=== PATIENT | female | born 1970 | race Caucasian/White ===

== ENCOUNTER 2019-09-08 13:09 | Emergency (ER) | payer OTHER, SELFPAY ==
--- NOTE | ~2019-09-08 | XR_ITS ---
XR heel LT min 2V 09/08/2019 13:40 INDICATION: Knot on left plantar aspect of the heel. Fracture 2 years ago. PROCEDURE: 2 views left heel/os calcis COMPARISON: No prior studies for comparison. FINDINGS: Fracture, dislocation or subluxation is not identified. The soft tissues appear within norm al limits. No foreign bodies are identified. IMPRESSION: 1: NO ACUTE BONE OR JOINT ABNORMALITY IDENTIFIED. Reviewed, dictated and finalized at location A.
[2019-09-08 13:21] VITALS: BP 130/74; PULSE 81; RESP 16; TEMP 36.6; O2SAT 99
--- NOTE | 2019-09-08 13:23 | ED.GENADULT ---
HPI - General Adult General Chief complaint: Extremity Injury, Lower Stated complaint: left heel pain Time Seen by Provider: 09/08/19 13:24 Source: patient and RN notes reviewed Limitations: no limitations History of Present Illness HPI narrative: 48-year-old female presents today with complaints of left foot mid-heel pain with a knot for the past 14 days. No treatment. No new injuries. Old heel injury approximately 2 years ago. Hurts to bear weight. No radiation of pain. No numbness, tingling, or loss of mobility. Exacerbating factor applying weight. Denies inability to bear weight. Denies discoloration. Denies suspect foreign body. Denies fever, chills, headaches, weakness, fatigue, or myalgia. Denies chest pain or dyspnea. Denies cough, rhinorrhea, congestion, sore throat, nausea, vomiting, abdominal pain, and diarrhea. Tolerating po intake well. Denies recent traveling. Denies concerns for COVID-19 or exposures been home since [id number]-[id number] order except for essential household needs, working, and return home. Some parts of this dictation were generated by voice recognition software and may contain typographical and/or grammatical inaccuracies. Related Data Home Medications Medication Instructions Recorded Confirmed citalopram mg 09/08/19 Allergies Allergy/AdvReac Type Severity Reaction Status Date / Time codeine Allergy Unknown Unknown Verified 09/24/17 11:08 Review of Systems Review of Systems: Narrative: CONSTITUTIONAL: Denies fever, chills, sweats. EYES: Denies visual changes, redness, discharge. ENT: Denies rhinorrhea, congestion, sore throat, otalgia. CARDIOVASCULAR: Denies chest pain, palpitations, edema. RESPIRATORY: Denies dyspnea, wheezing, cough. GASTROINTESTINAL: Denies abdominal pain, nausea, vomiting, diarrhea. GENITOURINARY: Denies dysuria, hematuria, abnormal discharge. SKIN: Denies rash or itching. MUSCULOSKELETAL: Denies acute back pain or myalgia. Complains of pain and a knot to left foot mid-heel. NEUROLOGIC: Denies numbness or focal weakness. PSYCHIATRIC: Denies anxiety or depression. All other systems reviewed & are unremarkable except as noted in HPI and below. [facility] Past Medical History Medical History (Updated 09/09/19 @ 00:01 by Background Daemon) Heel bone fracture History of pilonidal cyst Surgical History Surgical History (Updated 09/08/19 @ 13:38 by LIZA Torrez) History of cone biopsy of cervix History of incision and drainage of pilonidal cyst Family History Family History (Updated 09/08/19 @ 13:38 by LIZA Torrez) Father Hypertension Family history of congestive heart failure Mother Alive and well Social History Social History (Updated 09/08/19 @ 13:40 by LIZA Torrez) Smoking packs per day: 1 Smoking cigarettes per day: 20.0 Years smoked: 20 Smoking pack-years: 20.00 Smoking status: Current every day smoker Tobacco type: cigarettes Second hand tobacco smoke exposure: No Alcohol intake: current Substance use: never Living arrangements: with family Occupation/Education: occupation Gender identity (if verbalized by the patient): Female Comments At time of signature, agree with nurse past medical, surgical, social, and family history. There is no relevant family history pertinent to the presenting complaint. Exam Narrative: Exam Narrative: GENERAL: This is a well-nourished, well-developed patient, in no apparent distress. Ambulates with a limp favoring left lower extremity or walking on ball of foot to prevent putting pressure on heel. HEAD: normocephalic, atraumatic. EYES: PERRL. Sclera clear/white. Vision is grossly intact. CARDIOVASCULAR: Regular rate and rhythm without murmurs, gallops, or rubs. RESPIRATORY: Clear to auscultation. Breath sounds equal bilaterally. No wheezes, rales, or rhonchi. GASTROINTESTINAL: Abdomen soft, non-tender, nondistended. Bowel sounds are act
== END 2019-09-08 14:09 | disposition home or self-care (01) ==
PROVIDERS: Emergency Provider Nurse Practitioner Family; PCP Family Medicine
DX: L84 Corns and callosities (principal); F17.210 Nicotine dependence, cigarettes, uncomplicated
CPT/HCPCS: 73650; 99213; G0463

== ENCOUNTER 2020-07-27 13:43 | Outpatient (CLI) | payer BC, SELFPAY ==
--- NOTE | ~2020-07-27 | MM_ITS ---
EXAMINATION: MM screening [facility] BI w echo HISTORY: Screening mammogram TECHNIQUE: Craniocaudal and mediolateral oblique 3-D tomosynthesis images were obtained and synthetic 2-D images were generated. CAD analysis was submitted and interpreted. COMPARISON: 12/03/2017 BREAST PARENCHYMAL COMPOSITION: There are scattered areas of fibroglandular density. FINDINGS: RIGHT BREAST: There is a 3.5 cm mass in the anterior third of the lower breast which is decreased in size since the prior examination. LEFT BREAST: There is a 1.1 cm mass in the middle third of the central breast 4 cm from the nipple. IMPRESSION: 1. Bilateral breast masses. 2. Additional mammographic views and possible breast ultrasound are recommended. BI-RADS Category 0: Incomplete: Needs additional imaging evaluation. Reviewed, dictated and finalized at location A. IMPRESSION: 1. Bilateral breast masses. 2. Additional mammographic views and possible breast ultrasound are recommended . BI-RADS Category 0: Incomplete: Needs additional imaging evaluation.
[2020-07-27 15:59] LABS: Vitamin D 25 Hydroxy 57.6 ng/mL
== END 2020-07-27 13:44 | disposition home or self-care (01) ==
PROVIDERS: PCP Family Medicine; Visit Provider Nurse Practitioner
DX: Z12.31 Encounter for screening mammogram for malignant neoplasm of breast (principal); E55.9 Vitamin D deficiency, unspecified; R92.8 Other abnormal and inconclusive findings on diagnostic imaging of breast
CPT/HCPCS: 36415; 77063; 77067; 82306

== ENCOUNTER 2020-08-25 12:21 | Outpatient (CLI) | payer BC, SELFPAY ==
--- NOTE | ~2020-08-25 | MMUS_ITS ---
EXAMINATION: MM diagnostic mammo BI, US breast BI limited HISTORY: Bilateral breast masses on screening mammogram TECHNIQUE: Additional 3-D tomosynthesis images of the breasts were performed and synthetic 2-D images were generated. CAD analysis was submitted and interpreted. High resolution limited bilateral breast ultrasound was performed. COMPARISON: 07/27/2020, 12/03/2017 FINDINGS: MAMMOGRAPHIC FINDINGS: Right breast: There is a 3.3 x 2.9 cm oval, circumscribed, equal density mass in the anterior third o f the lower-outer breast at the 8:00 location near the nipple. Left breast: There is a 9 mm oval, obscured, equal density mass in the middle third of the outer [address] at the 3:00 location 4 cm from the nipple. ULTRASOUND: Right breast: There is a 3.1 x 1.3 cm oval, circumscribed, parallel, anechoic mass with posterior aco ustic enhancement and no internal vascularity at the 7:00 location 2 cm from the nipple. There are se veral small, fixed nodules at the periphery of the mass without associated internal vascularity. Left breast: There is an 8 mm x 4 mm oval, circumscribed, parallel, hypoechoic mass with no posterior features or internal vascularity at the 12:00 location 1 cm from the nipple. A 5 mm x 2 mm mass with similar sonographic features is present at the 1:00 location 1 cm from the nipple. IMPRESSION: 1. Cystic right breast mass with peripheral nodules. Ultrasound-guided biopsy of one or more of the p eripheral nodules is recommended. 2. Probably benign left breast masses. Six month follow-up left diagnostic mammogram and ultrasound i s recommended. BI-RADS category 4, suspicious findings. Reviewed, dictated and finalized at location A. IMPRESSION: 1. Cystic right breast mass with peripheral nodules. Ultrasound-guided biopsy o f one or more of the peripheral nodules is recommended. 2. Probably benign left breast masses. Six month follow-up left diagnostic mamm ogram and ultrasound is recommended. BI-RADS category 4, suspicious findings.
== END 2020-08-25 12:22 | disposition home or self-care (01) ==
PROVIDERS: PCP Family Medicine; Visit Provider Obstetrics & Gynecology Gynecology
DX: R92.8 Other abnormal and inconclusive findings on diagnostic imaging of breast (principal)
CPT/HCPCS: 76642; 77066

== ENCOUNTER → 2021-05-12 08:39 | Outpatient (CLI) | payer BC, SELFPAY ==
--- NOTE | ~2021-05-12 | MR_ITS ---
EXAMINATION: MR lumbar spine wo con DATE: 05/12/2021 10:04 INDICATION: Low back pain. TECHNIQUE: Magnetic resonance imaging (MRI) of the lumbar spine was performed without intravenous con trast. Sequences included sagittal T2-weighted FSE, sagittal T2-weighted FS FSE, sagittal T1-weighted FSE, and axial T2-weighted FSE. COMPARISON: None FINDINGS: 7 degrees lumbar levocurvature. Sagittal alignment is normal. Minimal likely physiologic anterior wed ging at T11 and T12. Lumbar vertebral body heights are normal. Moderate to severe disc height loss wi th degenerative fibrofatty endplate changes at L5-S1. Marrow signal is otherwise normal throughout. M ild disc height loss at T10-T11, T11-T12, L3-L4 and L4-L5. Annular fissure at L4-L5. 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 The conus medullaris terminates at L1. There is normal signal in the caudal spinal cord. Paravertebral soft tissues are unremarkable. The following disc levels are s pecifically discussed: T12-L1: Disc is mildly bulging. There is mild bilateral facet joint osteoarthritis. There is no neura l foraminal stenosis. There is negligible central canal stenosis. L1-L2: The disc does not extend beyond the endplate margin. There is mild to moderate bilateral facet joint osteoarthritis. There is no neural foraminal stenosis. There is no central canal stenosis. L2-L3: Disc is minimally bulging. There is mild left and mild to moderate right facet joint osteoarth ritis. There is mild left and minimal right neural foraminal stenosis. There is no central canal sten osis. L3-L4: Disc is mildly bulging. There is mild bilateral facet joint osteoarthritis. There is minimal b ilateral neural foraminal stenosis. There is no central canal stenosis. L4-L5: Disc is bulging with superimposed annular fissure and central disc protrusion. There is mild t o moderate bilateral facet joint osteoarthritis. There is mild right and mild to moderate left neural foraminal stenosis. There is mild central canal stenosis. L5-S1: Disc is mildly bulging. There is mild bilateral facet joint osteoarthritis. There is mild left and mild to moderate right neural foraminal stenosis. There is no central canal stenosis. IMPRESSION: 1. Moderate lower lumbar spondylosis with mild spondylosis in the lower thoracic and upper lumbar spi ne. Reviewed, dictated and finalized at location B. GRAPH OPERATOR IMPRESSION: 1. Moderate lower lumbar spondylosis with mild spondylosis in the lower thoraci c and upper lumbar spine.
--- NOTE | ~2021-05-12 | MR_ITS ---
EXAMINATION: MR cervical spine wo con DATE: 05/12/2021 10:03 INDICATION: Cervicalgia TECHNIQUE: Magnetic resonance imaging (MRI) of the cervical spine was performed without intravenous c ontrast. Sequences included sagittal T2-weighted FSE, sagittal T2-weighted FS FSE, sagittal T1-weight ed FSE, axial MERGE and axial T2-weighted FSE. COMPARISON: Cervical spine radiographs dated 01/06/2019 FINDINGS: Straightening of the normal cervical lordosis. 2 mm retrolisthesis C5 on C6. Vertebral body heights a re normal. Moderate disc height loss with fibrofatty degenerative endplate changes at C5-C6. Marrow s ignal is otherwise normal. Additional moderate disc height loss at T3-T4 and mild disc height loss at C4-C5, T2-T3 and T4-T5. Cord signal intensity is normal. Cervical soft tissues are unremarkable. The following disc levels are specifically discussed: C2-C3: Disc is mildly bulging. There is no uncovertebral joint osteoarthritis. There is mild bilatera l facet joint osteoarthritis. There is no neural foraminal stenosis. There is no central canal stenos is. C3-C4: Disc is mildly bulging. There is mild bilateral uncovertebral joint osteoarthritis. There is m ild bilateral facet joint osteoarthritis. There is no neural foraminal stenosis. There is no central canal stenosis. C4-C5: Disc is bulging. There is moderate bilateral uncovertebral joint osteoarthritis. There is mild bilateral facet joint osteoarthritis. There is mild bilateral neural foraminal stenosis. There is mi ld central canal stenosis with flattening of the ventral surface of the cord. C5-C6: Disc is mildly bulging. There is severe bilateral uncovertebral joint osteoarthritis. There is no facet joint osteoarthritis. There is mild right and mild to moderate left neural foraminal stenos is. There is mild central canal stenosis. C6-C7: The disc does not extend beyond the endplate margin. There is mild left uncovertebral joint os teoarthritis. There is mild bilateral facet joint osteoarthritis. There is mild left neural foraminal stenosis. There is no central canal stenosis. C7-T1: The disc does not extend beyond the endplate margin. There is no uncovertebral joint osteoarth ritis. There is mild left and minimal right facet joint osteoarthritis. There is no neural foraminal stenosis. There is no central canal stenosis. IMPRESSION: 1. Moderate cervical spondylosis. Reviewed, dictated and finalized at location B. OTYPER
== END ==
PROVIDERS: PCP Family Medicine; Visit Provider Nurse Practitioner Family
DX: M47.813 Spondylosis without myelopathy or radiculopathy, cervicothoracic region (principal); M48.03 Spinal stenosis, cervicothoracic region; M47.815 Spondylosis without myelopathy or radiculopathy, thoracolumbar region; M48.05 Spinal stenosis, thoracolumbar region; M47.817 Spondylosis without myelopathy or radiculopathy, lumbosacral region; M48.07 Spinal stenosis, lumbosacral region
CPT/HCPCS: 72141; 72148

== ENCOUNTER 2021-11-03 11:46 | Outpatient (CLI) | payer BC, SELFPAY ==
--- NOTE | ~2021-11-03 | XR_ITS ---
XR cervical spine 4-5V DATE: 11/03/2021 12:17 INDICATION: Neck pain TECHNIQUE: AP, lateral and flexion and extension lateral views COMPARISON: 01/06/2019 cervical spine FINDINGS: There is reversal of cervical curvature. C1 and C2 are normally aligned and the odontoid process is intact. No fracture or dislocation or lock ed facet or prevertebral soft tissue swelling. No cervical instability is evident on flexion or exten vickey. There is moderately severe degenerative disc disease at C4-5 and C5-6. IMPRESSION: Reversal of cervical curvature Moderately severe degenerative disease at C4-5 and C5-6 Reviewed, dictated and finalized at location A.
== END 2021-11-03 11:47 | disposition home or self-care (01) ==
PROVIDERS: PCP Family Medicine; Visit Provider Neurological Surgery
DX: M47.812 Spondylosis without myelopathy or radiculopathy, cervical region (principal)
CPT/HCPCS: 72050

== ENCOUNTER 2022-07-05 10:44 | Outpatient (CLI) | payer BC, SELFPAY ==
[2022-07-05 11:08] LABS: Hematocrit 29.4 % (37.0-47.0); Hemoglobin 8.3 g/dL (12.0-15.0); Mean Corpuscular HGB Conc 28.2 g/dl (32-36); Mean Corpuscular Hemoglobin 20.8 pg (26-34); Mean Corpuscular Volume 73.7 fl (80-100); Mean Platelet Volume 9.1 fl (7.4-10.4); Platelet Count Result 310 k/mm3 (150-375); Red Blood Count 3.99 M/mm3 (4.2-5.4); Red Cell Distribution Width 17.2 % (11.5-14.5); White Blood Count 3.7 K/mm3 (4.5-10.0)
[2022-07-05 11:19] LABS: Alanine Aminotransferase 19 U/L (6-35); Albumin Level 4.5 g/dL (3.5-5.1); Alkaline Phosphatase 51 U/L (38-126); Anion Gap 5 mmol/L (8-16); Aspartate Amino Transferase 24 U/L (14-36); Bilirubin,Total 0.4 mg/dL (0.2-1.3); Blood Urea Nitrogen 20 mg/dL (7-17); Calcium 8.6 mg/dL (8.4-10.2); Carbon Dioxide 29 mmol/L (22-30); Chloride 104 mmol/L (98-107); Cholesterol 175 mg/dL (0-200); Estimated Glomerular Filt Rate > 60; Glucose 91 mg/dL (65-110); HDL Direct 67 mg/dL; Potassium 4.2 mmol/L (3.4-5.0); Sodium 138 mmol/L (137-145); Triglycerides 45 mg/dL (<150)
[2022-07-05 11:30] LABS: LDL Cholesterol Direct 86 mg/dL
== END 2022-07-05 10:45 | disposition home or self-care (01) ==
LOC: ANHLAB 10:47
PROVIDERS: PCP Family Medicine; Visit Provider Physician Assistant Medical
DX: E78.2 Mixed hyperlipidemia (principal); R53.83 Other fatigue
CPT/HCPCS: 36415; 80053; 80061; 85027

== ENCOUNTER 2022-07-11 10:12 | Outpatient (CLI) | payer BC, SELFPAY ==
[2022-07-11 12:02] LABS: Iron 21 ug/dL (37-170)
[2022-07-11 12:12] LABS: Percent Iron Saturation 4 % (20-50)
[2022-07-11 12:36] LABS: Ferritin 4.33 ng/mL (6.24-137)
== END 2022-07-11 10:13 | disposition home or self-care (01) ==
LOC: ANHLAB 10:13
PROVIDERS: PCP Family Medicine; Visit Provider Physician Assistant Medical
DX: R53.83 Other fatigue (principal)
CPT/HCPCS: 36415; 82728; 83540; 83550

== ENCOUNTER 2022-09-05 09:50 | Outpatient (CLI) | payer BC, SELFPAY ==
--- NOTE | ~2022-09-05 | MM_ITS ---
EXAMINATION: MM screening [facility] BI w echo HISTORY: Screening mammogram TECHNIQUE: Craniocaudal and mediolateral oblique 3-D tomosynthesis images were obtained and synthetic 2-D images were generated. CAD analysis was submitted and interpreted. COMPARISON: 08/25/2020, 07/27/2020, 12/03/2017 BREAST PARENCHYMAL COMPOSITION: There are scattered areas of fibroglandular density. FINDINGS: There has been interval biopsy and drainage of previously described right breast mass. A ma ss in the central left breast is unchanged in the two year interval since the prior examination, cons istent with a benign finding. No suspicious mass, calcification, or architectural distortion are iden tified in either breast to suggest malignancy. There has been no suspicious interval change. IMPRESSION: 1. No mammographic evidence of malignancy. 2. Recommend routine screening mammography in one year. BI-RADS Category 2: Benign finding(s). Reviewed, dictated and finalized at location A.
== END 2022-09-05 09:51 | disposition home or self-care (01) ==
LOC: ANHIMG 09:53
PROVIDERS: PCP Family Medicine; Visit Provider Physician Assistant Medical
DX: Z12.31 Encounter for screening mammogram for malignant neoplasm of breast (principal)
CPT/HCPCS: 77063; 77067

== ENCOUNTER → 2022-11-02 08:30 | Outpatient (CLI) | payer BC, SELFPAY ==
--- NOTE | ~2022-11-02 | US_ITS ---
EXAMINATION: US transvaginal DATE: 11/02/2022 08:57 INDICATION: Excessive and frequent menstruation TECHNIQUE: Multiple endovaginal sonographic images of the pelvis were obtained. COMPARISON: None. FINDINGS: The uterus measures 9 x 7.7 x 7.5 cm. There are multiple small masses of the uterus which h ave the appearance of intramural fibroids. The largest measures 4 cm in the posterior uterine body. T he endometrial complex measures 11 mm. The right ovary measures 4.5 x 2.7 x 2.4 cm. The left ovary me asures 2.9 x 2.1 x 1.8 cm. There is normal vascular flow in the ovaries. There is no free fluid in th e pelvis. IMPRESSION: 1. Small uterine fibroids. Reviewed, dictated and finalized at location B. IMPRESSION: 1. Small uterine fibroids.
== END ==
PROVIDERS: PCP Family Medicine; Visit Provider Obstetrics & Gynecology Gynecology
DX: N92.0 Excessive and frequent menstruation with regular cycle (principal); D25.9 Leiomyoma of uterus, unspecified
CPT/HCPCS: 76830

== ENCOUNTER 2023-01-28 11:52 | Outpatient (CLI) | payer BC, SELFPAY ==
[2023-01-28 12:11] LABS: Hematocrit 33.4 % (37.0-47.0); Hemoglobin 10.2 g/dL (12.0-15.0); Mean Corpuscular HGB Conc 30.5 g/dl (32-36); Mean Corpuscular Hemoglobin 25.4 pg (26-34); Mean Corpuscular Volume 83.1 fl (80-100); Mean Platelet Volume 10.1 fl (7.4-10.4); Platelet Count Result 286 k/mm3 (150-375); Red Blood Count 4.02 M/mm3 (4.2-5.4); Red Cell Distribution Width 15.1 % (11.5-14.5); White Blood Count 5.7 K/mm3 (4.5-10.0)
== END 2023-01-28 11:53 | disposition home or self-care (01) ==
LOC: ANHLAB 11:54
PROVIDERS: PCP Family Medicine; Visit Provider Obstetrics & Gynecology Gynecology
DX: N92.0 Excessive and frequent menstruation with regular cycle (principal)
CPT/HCPCS: 36415; 85027

== ENCOUNTER 2023-03-25 14:38 | Outpatient (CLI) | payer BC, SELFPAY ==
[2023-03-25 15:27] LABS: Hemoglobin 11.2 g/dL (12.0-15.0); Mean Corpuscular HGB Conc 31.1 g/dl (32-36); Mean Corpuscular Hemoglobin 27.8 pg (26-34); Mean Corpuscular Volume 89.3 fl (80-100); Mean Platelet Volume 10.7 fl (7.4-10.4); Platelet Count Result 239 k/mm3 (150-375); Red Blood Count 4.03 M/mm3 (4.2-5.4); Red Cell Distribution Width 18.6 % (11.5-14.5); White Blood Count 5.5 K/mm3 (4.5-10.0)
== END 2023-03-25 14:39 | disposition home or self-care (01) ==
LOC: ANHLAB 14:40
PROVIDERS: PCP Family Medicine; Visit Provider Obstetrics & Gynecology Gynecology
DX: D64.9 Anemia, unspecified (principal)
CPT/HCPCS: 36415; 85027

== ENCOUNTER 2023-04-25 00:09 | Day surgery (SDC) | payer BC, SELFPAY ==
[2023-04-09 09:40] VITALS: BMI 30.9
--- NOTE | 2023-04-23 08:57 | SUR.PREOP ---
Patient called regarding upcoming procedure. Message left on patient's voicemail regarding appointment times.
[2023-04-25 07:37] VITALS: BP 129/83; PULSE 83; RESP 16; TEMP 35.9; O2SAT 100; BMI 30.7
[2023-04-25] MEDS: LACTATED RINGERS 1,000 ML 150 ML IV CONT (07:46)
--- NOTE | 2023-04-25 08:16 | WPDANESEPPF ---
Anes - Initial Pre Proc Eval Procedure: Operation Date: 04/25/23 09:00 Proposed Procedures p Screening Colonoscopy - Mika Luu MD Date/Time: 04/25/23 08:16 Surgeon: Mika Luu MD Pre Op Diagnosis: neoplasm screening Patient Data Age: 52 Gender: F Height: 1.75 m Weight: 94.3 kg Last Vital Signs Temp 35.9 C L 04/25/23 07:37 Pulse 83 04/25/23 07:37 Resp 16 04/25/23 07:37 BP 129/83 04/25/23 07:37 Pulse Ox 100 04/25/23 07:37 O2 Del Method Room Air 04/25/23 07:37 Allergies Allergy/AdvReac Type Severity Reaction Status Date / Time codeine Allergy Unknown Unknown Verified 04/25/23 07:36 Home Medications Medication Instructions Recorded Confirmed Type omeprazole magnesium 20 mg 20 mg PO DAILY 01/29/20 04/25/23 History tablet,delayed release (Prilosec OTC) iprzyid-hpvcqwwmyupxd-kkzdrcsy 250 1 tablet PO Q4-6H PRN Migraine 03/09/22 04/25/23 History mg-250 mg-65 mg tablet (Excedrin Headache Migraine) tramadol 50 mg tablet 50 mg PO Q6H PRN pain #40 tabs 04/01/23 04/25/23 Rx Blisovi 24 Fe 1 tab-cap PO DAILY 04/09/23 04/25/23 History escitalopram oxalate 10 mg tablet 20 mg PO DAILY 04/09/23 04/25/23 History ferric maltol 30 mg capsule 30 mg PO DAILY 04/09/23 04/25/23 History (Accrufer) cyclobenzaprine 10 mg tablet 10 mg PO QAM PRN muscle spasm #30 04/19/23 04/25/23 Rx tabs Patient hx anesthesia problems: none Family hx anesthesia problems: none Results Review: All pre-operative results and documents have been reviewed as part of the pre-operative evaluation. [facility] Past Medical History Medical History Heel bone fracture History of pilonidal cyst Neck Pain Surgical History Surgical History History of cone biopsy of cervix History of incision and drainage of pilonidal cyst Family History Family History Father Hypertension Family history of congestive heart failure Mother Alive and well Social History Social History Smoking packs per day: 0.5 Smoking cigarettes per day: 10.0 Years smoked: 20 Smoking pack-years: 10.00 Smoking status: Former smoker Tobacco type: cigarettes Second hand tobacco smoke exposure: No Smoking end date: 09/30/22 Alcohol intake: current Drinks per week: 14 Substance use: never Substance use type: does not use Lack of Transportation: No Lack of Food: Never True Current Housing: I Have Housing Concerned About Future Housing: No Difficulty Paying Gas/Electric Bills: No Difficulty Paying for Meds: No Currently Unemployed: No Education: High School Diploma/GED Difficulty w/ Childcare or Family Care: No Living arrangements: with family Occupation/Education: occupation Gender identity (if verbalized by the patient): Female Spiritual care concerns: No Agree to blood products: Yes Anes - Eval Final PreProcedure Day of Procedure 04/25/23 08:16 Patient weight: obese Heart: regular rate and rhythm Lungs: clear to auscultation Airway: Mallampati scale class II Neurological: alert and oriented Last oral intake: >/= 8 hours ASA classification: II Emergent: no Anesthetic plan: proceed Anesthesia type and monitoring: general GIVS and standard monitoring Results Review: All pre-operative results and documents have been reviewed as part of the pre-operative evaluation. Informed Consent: The patient's anesthetic plan and its attendant risks and benefits were discussed with the patient/family/POA. Questions were solicited and answers provided to the satisfaction of the patient/family/POA.
--- NOTE | 2023-04-25 08:33 | PM.HPGS ---
History of Present Illness History of Present Illness Consent: Risks, benefits, and alternatives have been discussed and questions answered. Patient agrees to proceed with procedure. Chief complaint: neoplasm screening Narrative: Jacy Shaffer is a 52 year old female Presents for screening colonoscopy. Patient has never had exam prior to this. Her current weight appetite and bowel movements are normal. Patient denies abdominal pain. She has had no bleeding. Family history noncontributory. Review of Systems Review of Systems: Review of systems noncontributory. Patient was placed on iron for iron deficiency anemia. On hold for procedure. [facility] Past Medical History Medical History Heel bone fracture History of pilonidal cyst Neck Pain Surgical History Surgical History History of cone biopsy of cervix History of incision and drainage of pilonidal cyst Family History Family History Father Hypertension Family history of congestive heart failure Mother Alive and well Social History Social History Smoking packs per day: 0.5 Smoking cigarettes per day: 10.0 Years smoked: 20 Smoking pack-years: 10.00 Smoking status: Former smoker Tobacco type: cigarettes Second hand tobacco smoke exposure: No Smoking end date: 09/30/22 Alcohol intake: current Drinks per week: 14 Substance use: never Substance use type: does not use Lack of Transportation: No Lack of Food: Never True Current Housing: I Have Housing Concerned About Future Housing: No Difficulty Paying Gas/Electric Bills: No Difficulty Paying for Meds: No Currently Unemployed: No Education: High School Diploma/GED Difficulty w/ Childcare or Family Care: No Living arrangements: with family Occupation/Education: occupation Gender identity (if verbalized by the patient): Female Spiritual care concerns: No Agree to blood products: Yes Meds Home Medications and Allergies Home Medications Medication Instructions Recorded Confirmed Type omeprazole magnesium 20 mg 20 mg PO DAILY 01/29/20 04/25/23 History tablet,delayed release (Prilosec OTC) uaqzqku-mgqkyhtwykzkq-toqnkdok 250 1 tablet PO Q4-6H PRN Migraine 03/09/22 04/25/23 History mg-250 mg-65 mg tablet (Excedrin Headache Migraine) tramadol 50 mg tablet 50 mg PO Q6H PRN pain #40 tabs 04/01/23 04/25/23 Rx Blisovi 24 Fe 1 tab-cap PO DAILY 04/09/23 04/25/23 History escitalopram oxalate 10 mg tablet 20 mg PO DAILY 04/09/23 04/25/23 History ferric maltol 30 mg capsule 30 mg PO DAILY 04/09/23 04/25/23 History (Accrufer) cyclobenzaprine 10 mg tablet 10 mg PO QAM PRN muscle spasm #30 04/19/23 04/25/23 Rx tabs Allergies Allergy/AdvReac Type Severity Reaction Status Date / Time codeine Allergy Unknown Unknown Verified 04/25/23 07:36 Vital Signs Vital Signs - 24 hr 04/25/23 07:37 Temperature 96.6 F L Pulse Rate 83 Respiratory Rate 16 Blood Pressure 129/83 Pulse Oximetry 100 Oxygen Delivery Room Air Exam Narrative: Physical exam reveals patient to be alert. Vital signs stable. HEENT exam is unremarkable. Patient is anicteric. Lungs are clear to auscultation and percussion. Heart is without murmur or extra sounds. Abdomen bowel sounds are present soft nontender with no organomegaly. Digital external rectal exam normal. Assessment and Plan Assessment and plan (1) Encounter for screening colonoscopy: Code(s): Z12.11 - Encounter for screening for malignant neoplasm of colon Status: Acute Assessment and Plan: Patient presents for screening colonoscopy. She has never had screening before. Further recommendations may be given after endoscopy.
[2023-04-25 09:39] VITALS: BP 114/68; PULSE 79; RESP 17; O2SAT 100
[2023-04-25 09:49] VITALS: BP 110/64; PULSE 82; RESP 18; O2SAT 100
[2023-04-25 09:59] VITALS: BP 134/66; PULSE 79; RESP 16; O2SAT 100
== END 2023-04-25 10:03 | disposition home or self-care (01) ==
PROVIDERS: PCP Family Medicine; Visit Provider Internal Medicine Gastroenterology
PROC: 0DJD8ZZ Inspection of Lower Intestinal Tract, Via Natural or Artificial Opening Endoscopic (ICD-10-PCS; CPT 45378; principal; 2023-04-25 09:00)
DX: Z12.11 Encounter for screening for malignant neoplasm of colon (principal); K64.8 Other hemorrhoids; E66.9 Obesity, unspecified; Z68.30 Body mass index [BMI] 30.0-30.9, adult; Z79.82 Long term (current) use of aspirin; Z79.891 Long term (current) use of opiate analgesic; Z87.891 Personal history of nicotine dependence; Z82.49 Family history of ischemic heart disease and other diseases of the circulatory system
CPT/HCPCS: 45378; J2704; J7120

== ENCOUNTER 2023-10-09 09:18 | Outpatient (CLI) | payer BC, SELFPAY ==
--- NOTE | ~2023-10-09 | MM_ITS ---
EXAMINATION: MM screening tank BI w echo HISTORY: Screening TECHNIQUE: Craniocaudal and mediolateral oblique 3-D tomosynthesis images were obtained and synthetic 2-D images were generated. CAD analysis was submitted and interpreted. COMPARISON: Comparison to multiple prior studies sequentially, with oldest reviewed study dated 12/03. BREAST PARENCHYMAL COMPOSITION: Not dense: There are scattered areas of fibroglandular density. FINDINGS: There is no evidence of suspicious mass, calcification, or architectural distortion to sugg est malignancy in either breast. There has been no suspicious interval change. IMPRESSION: 1. No mammographic evidence of malignancy. 2. Recommend routine screening mammography in one year. BI-RADS Category 1: Negative Reviewed, dictated and finalized at location B.
== END 2023-10-09 09:19 | disposition home or self-care (01) ==
LOC: ANHIMG 09:20
PROVIDERS: PCP Family Medicine; Visit Provider Obstetrics & Gynecology Gynecology
DX: Z12.31 Encounter for screening mammogram for malignant neoplasm of breast (principal)
CPT/HCPCS: 77063; 77067

== ENCOUNTER 2023-11-18 08:00 | Outpatient (CLI) | payer BC, SELFPAY ==
--- NOTE | ~2023-11-18 | MR_ITS ---
MRI of the cervical spine Clinical History: Spondylosis Technique: Axial T2-weighted and gradient images, and sagittal T1-weighted, T2-weighted, and STIR monse ges were acquired. Findings: No acute fracture or sublocation seen. There is reversal of the normal cervical lordosis. N o suspicious bone marrow signal abnormality seen. At C2-C3, there is minimal disc bulge and minimal facet arthropathy. No central canal stenosis, cord compression, or neural foraminal narrowing. At C3-C4, there is minimal disc bulge. No spinal canal stenosis, cord compression, or neural foramina l narrowing. At C4-C5, there is advanced degenerative disc narrowing. There is mild disc and osteophyte complex. N o spinal canal stenosis, cord compression, or neural foraminal narrowing. At C5-C6, there is advanced degenerative disc. There is minimal disc bulge. No spinal canal stenosis, cord compression, or definite neural foraminal narrowing. At C6-C7, there is no disc bulge or herniation. No spinal canal stenosis, cord compression, or neural foraminal narrowing. No abnormal signal seen in the spinal cord. Paravertebral soft tissues are unremarkable. Impression: Degenerative disc change predominantly at C4-C5 and C5-C6, as detailed above. Reviewed, dictated and finalized at location . Impression: Degenerative disc change predominantly at C4-C5 and C5-C6, as detailed above.
== END 2023-11-18 08:01 ==
PROVIDERS: PCP Family Medicine; Visit Provider Family Medicine
DX: M47.812 Spondylosis without myelopathy or radiculopathy, cervical region (principal); M50.321 Other cervical disc degeneration at C4-C5 level
CPT/HCPCS: 72141

== ENCOUNTER 2024-03-04 14:30 | Emergency (ER) | payer BC, SELFPAY ==
--- NOTE | 2024-03-04 15:03 | ED.SKABFB ---
HPI - Skin/Abscess/Foreign Bdy General Chief complaint: Skin/Abscess/Foreign Body <Marine Joe, HAND BRUSH FILLER - Last Filed: 03/04/24 15:06> Stated complaint: earring digging into ear - can't get out <Marine Joe, HAND BRUSH FILLER - Last Filed: 03/04/24 15:06> Time Seen by Provider: 03/04/24 14:30 <Marine Joe, HAND BRUSH FILLER - Last Filed: 03/04/24 15:06> Focused HPI: Patient is a 53-year-old female who presents to the ER with complaints of any ear ring inbedded in her left upper ear. She reports she had the area appears to when she was 20 and has not changed the earring out in years. patient reports she recently started using a CPAP and has since noticed increased left ear pain. Patient reports she has been to four tattoos/ intelligence operations specialist but no one has been able to remove it. She reports the earring has led to her experiencing a headache. patient verbalizes she would like to have the earring removed. Patient denies any other pertinent medical history. GENERAL: Well-appearing, well-nourished, and in no acute distress. HEAD: Normocephalic, atraumatic. CHEST: Clear to auscultation. ?No respiratory distress. HEART: Regular rate and rhythm.? NEURO: ?Alert and oriented x3. Patient screened in triage and initial orders placed.? ?Additional care and disposition to be based upon?diagnostic testing and treatment. <Marine Joe, HAND BRUSH FILLER - Last Filed: 03/04/24 15:06> Focused HPI: Patient is a 53-year-old female who presents to the ER with complaints of any ear ring inbedded in her left upper ear. She reports she had the area appears to when she was 20 and has not changed the earring out in years. patient reports she recently started using a CPAP and has since noticed increased left ear pain. Patient reports she has been to four tattoos/ intelligence operations specialist but no one has been able to remove it. She reports the earring has led to her experiencing a headache. patient verbalizes she would like to have the earring removed. Patient denies any other pertinent medical history. GENERAL: Well-appearing, well-nourished, and in no acute distress. HEAD: Normocephalic, atraumatic. CHEST: Clear to auscultation. ?No respiratory distress. HEART: Regular rate and rhythm.? NEURO: ?Alert and oriented x3. Patient screened in triage and initial orders placed.? ?Additional care and disposition to be based upon?diagnostic testing and treatment. <AL Crain Last Filed: 03/04/24 19:05> Source: patient <AL Crain Last Filed: 03/04/24 19:05> Mode of arrival: ambulatory <AL Crain Last Filed: 03/04/24 19:05> Limitations: no limitations <AL Crain Last Filed: 03/04/24 19:05> History of Present Illness HPI narrative: Agree with above HPI <AL Crain Last Filed: 03/04/24 19:05> Related Data Home medications: Home Medications Medication Instructions Recorded Confirmed omeprazole magnesium 20 mg 20 mg PO DAILY 01/29/20 11/11/23 tablet,delayed release (Prilosec OTC) jlihtvj-zqnsvjvtbahyp-ayrepouv 250 1 tablet PO Q4-6H PRN Migraine 03/09/22 11/11/23 mg-250 mg-65 mg tablet (Excedrin Headache Migraine) Blisovi 24 Fe 1 tab-cap PO DAILY 04/09/23 11/11/23 escitalopram oxalate 10 mg tablet 20 mg PO DAILY 04/09/23 11/11/23 ferric maltol 30 mg capsule 30 mg PO DAILY 04/09/23 11/11/23 (Accrufer) <Marine Joe APRN - Last Filed: 03/04/24 15:06> Allergies/Adverse reactions: Allergies Allergy/AdvReac Type Severity Reaction Status Date / Time codeine Allergy Unknown Unknown Verified 11/11/23 09:54 <Marine Joe APRN - Last Filed: 03/04/24 15:06> Review of Systems Review of Systems: All systems reviewed & are unremarkable except as noted in HPI. <AL Crain Last Filed: 03/04/24 19:05> All systems reviewed & are unremarkable except as noted in HPI and below <Lydia Obrien PA-C - Last Filed: 03/04/24 19:05> [facility] Past Medical History Medical History: Medical History Heel bone fracture History of pilonidal cyst Neck Pain <Marine Joe APRN - Last Filed: 03/04/24 15:06> Surgical History Surgical History: Surgical History History of cone biopsy of cervix History of incision and drainage of pilonidal cyst <Marine Joe APRN - Last Filed: 03/04/24 15:06> Family History Family History: Family History Father Hypertension Family history of congestive heart failure Mother Alive and well <Marine Joe APRN - Last Filed: 03/04/24 15:06> Social History Social History: Social History Smoking packs per day: 0.5 Smoking cigarettes per day: 10.0 Years smoked: 20 Smoking pack-years: 10.00 Smoking status: Former smoker Tobacco type: cigarettes Second hand tobacco smoke exposure: No Smoking end date: 09/30/22 Alcohol intake: current Drinks per week: 14 Substance use: never Substance use type: does not use Lack of Transportation: No Lack of Food: Never True Current Housing: I Have Housing Concerned About Future Housing: No Difficulty Paying Gas/Electric Bills: No Difficulty Paying for Meds: No Currently Unemployed: No Education: High School Diploma/GED Difficulty w/ Childcare or Family Care: No Living arrangements: with family Occupation/Education: occupation Gender identity (if verbalized by the patient): Female Spiritual care concerns: No Agree to blood products: Yes <Marine Joe APRN - Last Filed: 03/04/24 15:06> Exam Narrative: GENERAL: Well appearing, well-nourished, non-toxic, in no acute distress. HEAD: Normocephalic, atraumatic. ENT: L ear with cartilage piercing to helix with diffuse swelling and erythema of helix. Piercing in place. No drainage. Swelling surrounding posterior backing to earring but earring is still freely movable, not deeply embedded. TM clear. RESPIRATORY: Airway patent, respirations nonlabored. CARDIOVASCULAR: Regular rate and rhythm MUSCULOSKELETAL: Moves all extremities. No gross deformities. SKIN: Warm, dry, normal color. NEURO: A&O X3. Speech clear. PSYCHIATRIC: Appropriate mood and affect. Normal interaction. <Lydia Obrien PA-C - Last Filed: 03/04/24 19:05> Course DIRECTOR OF PUBLIC RELATIONS/PA Physician Supervision For this patient encounter, I reviewed the DIRECTOR OF PUBLIC RELATIONS or PA documentation, treatment plan, and medical decision making; and I had [id number] time with this patient. I removed the earing from the ear using my hands. <Roland Rodriguez MD - Last Filed: 03/04/24 19:29> MDM - Skin/Abscess/Foreign Bdy MDM Narrative Medical decision making narrative: Able to remove/untwist the earring with manual manipulation with the assistance of Dr. Rodriguez. Patient better after earring removal. Will be placed on short course of antibiotics for likely cellulitis given swelling, redness, multiple recent manipulations. Patient given return precautions. She agrees with plan. Discharged in stable condition. <Lydia Obrien PA-C - Last Filed: 03/04/24 19:05> Medical Records Attestation: I reviewed the patient's medical records. <Lydia Obrien PA-C - Last Filed: 03/04/24 19:05> Discharge Plan Discharge Clinical Impression: Embedded earring of left ear Qualifiers: Encounter type: initial encounter Qualified Code(s): S00.452A - Superficial foreign body of left ear, initial encounter <Marine Joe APRN - Last Filed: 03/04/24 15:06> Patient Disposition: Home, Self-Care <Marine Joe APRN - Last Filed: 03/04/24 15:06> Condition: Stable <Marine Joe APRN - Last Filed: 03/04/24 15:06> Instructions: Antibiotic Form, Ear Foreign Body (ED) <Marine Joe APRN - Last Filed: 03/04/24 15:06> Additional Instructions: Take antibiotics as prescribed. Recommend frequent icing/cool compresses to ear. Recommend Tylenol and ibuprofen as needed for discomfort. Follow-up with primary care doctor for further evaluation if needed. <Marine Joe APRN - Last Filed: 03/04/24 15:06> Prescriptions: New cephalexin 500 mg capsule 500 mg PO Q6H 7 Days Qty: 28 0RF No Action omeprazole magnesium [Prilosec OTC] 20 mg tablet,delayed release (DR/EC) 20 mg PO DAILY Excedrin Migraine 250-250-65 mg tablet 1 tablet PO Q4-6H PRN (Reason: Migraine Headache) escitalopram oxalate 10 mg tablet 20 mg PO DAILY Accrufer 30 mg capsule 30 mg PO DAILY Blisovi 24 Fe 1 tab-cap PO DAILY tramadol 50 mg tablet 50 mg PO Q6H PRN (Reason: pain) Qty: 40 0RF cyclobenzaprine 10 mg tablet 10 mg PO QAM PRN (Reason: muscle spasm) Qty: 30 0RF (DME) CPAP 4 cm H2O, mask and tubing See Rx Instructions .Route .MEDSUPPLY Qty: 1 0RF Rx Instructions: As directed nightly <Marine Joe APRN - Last Filed: 03/04/24 15:06> Follow-up/Referrals: Margarita Buenrostro MD [Primary Care Provider] - <Marine Joe APRN - Last Filed: 03/04/24 15:06> Time of Disposition: 17:46 <Marine Joe APRN - Last Filed: 03/04/24 15:06> 17:46 <Lydia Obrien PA-C - Last Filed: 03/04/24 19:05> 17:46 <Roland Rodriguez MD - Last Filed: 03/04/24 19:29>
== END 2024-03-04 17:55 | disposition home or self-care (01) ==
PROVIDERS: Emergency Provider Physician Assistant; PCP Family Medicine
DX: S00.452A Superficial foreign body of left ear, initial encounter (principal); Z87.891 Personal history of nicotine dependence; R51.9 Headache, unspecified
CPT/HCPCS: 99283

== ENCOUNTER 2024-09-15 10:07 | Outpatient (CLI) | payer BC, SELFPAY | END 2024-09-15 10:08 | disposition home or self-care (01) | LOC: MICIMG 10:07 | PROVIDERS: PCP Family Medicine; Visit Provider Nurse Practitioner Adult Health | DX: M25.562 Pain in left knee (principal); M25.462 Effusion, left knee | CPT/HCPCS: 73562 ==

== ENCOUNTER 2024-10-26 15:44 | Outpatient (CLI) | payer BC, SELFPAY ==
--- NOTE | ~2024-10-26 | MR_ITS ---
MRI left knee without contrast Ordering provider: Sylvia Claros APRN History: . M25.462 - Effusion, left knee . Comparison: None. FINDINGS: QUADRICEPS, PATELLAR TENDONS AND CRUCIATE LIGAMENTS: Partial tear of the anterior cruciate ligament. The posterior is intact. MENISCI: Meniscus tear is seen in the anterior horn of the lateral meniscus. The medial meniscus is intact. COLLATERAL LIGAMENTS: Normal. PATELLA: Normal position without tilt or subluxation. The medial and lateral patellar retinacula and medial patellofemoral ligament are intact. JOINT SPACE/ARTICULAR CARTILAGE: Minimal irregularity of the cartilage over the lateral femoral condy le and lateral tibial plateau. Otherwise, The articular cartilage of the knee is normal including th e posterior femoral condyles. Moderate joint effusion with fluid seen in the suprapatellar bursa. BONES: Normal marrow signal. SUPERFICIAL AND DEEP SOFT TISSUE: No popliteal cyst. No bursitis. No muscle strain. Otherwise, lois l. IMPRESSION: Tear in the anterior horn of the lateral meniscus. Highly suggestive partial tear of the anterior cruciate ligament. Joint effusion. Osteoarthritic changes in the lateral compartment of the knee. Reviewed, dictated and finalized at location A.
== END 2024-10-26 15:45 | disposition home or self-care (01) ==
LOC: MICIMG 15:44
PROVIDERS: PCP Family Medicine; Visit Provider Nurse Practitioner Adult Health
DX: M25.462 Effusion, left knee (principal); S83.282A Other tear of lateral meniscus, current injury, left knee, initial encounter; M17.12 Unilateral primary osteoarthritis, left knee; X58.XXXA Exposure to other specified factors, initial encounter
CPT/HCPCS: 73721

== ENCOUNTER 2025-01-29 14:05 | Outpatient (CLI) | payer BC, SELFPAY ==
--- NOTE | ~2025-01-29 | MM_ITS ---
EXAMINATION: MM screening [facility] BI w echo HISTORY: Screening TECHNIQUE: Craniocaudal and mediolateral oblique 3-D tomosynthesis images were obtained and synthetic 2-D images were generated. CAD analysis was submitted and interpreted. COMPARISON: Comparison to multiple prior studies sequentially, with oldest reviewed study dated 12/03/2017. BREAST PARENCHYMAL COMPOSITION: Not dense: There are scattered areas of fibroglandular density. FINDINGS: There is no evidence of suspicious mass, calcification, or architectural distortion to suggest malignancy in either breast. There has been no suspicious interval change. IMPRESSION: 1. No mammographic evidence of malignancy. 2. Recommend routine screening mammography in one year. BI-RADS Category 1: Negative Reviewed, dictated and finalized at location B.
== END 2025-01-29 14:06 | disposition home or self-care (01) ==
LOC: ANHFOHIMG 14:08
PROVIDERS: PCP Family Medicine; Visit Provider Obstetrics & Gynecology Gynecology
DX: Z12.31 Encounter for screening mammogram for malignant neoplasm of breast (principal)
CPT/HCPCS: 77063; 77067